=== PATIENT | male | born 1980 | race Two or more races ===

== ENCOUNTER 2022-04-30 07:54 | Emergency (ER) | payer MEDICAID, SELFPAY | END 2022-04-30 09:37 | disposition home or self-care (01) | LOC: CSHERS 07:54 | DX: S09.90XA Unspecified injury of head, initial encounter (principal); H66.91 Otitis media, unspecified, right ear; W50.0XXA Accidental hit or strike by another person, initial encounter | CPT/HCPCS: 70450 ==